=== PATIENT | female | born 1965 | race Caucasian/White ===

== ENCOUNTER → 2020-07-27 | Outpatient (CLI) | payer OTHER ==
[~2020-07-27] MED LIST: Aviane1 EACH; CLON.5 PO; Celexa40 MG PO
== END | disposition home or self-care (01) ==
LOC: PLD 11:43 → LAB SHORT 11:43
DX: D22.62 Melanocytic nevi of left upper limb, including shoulder (principal)
CPT/HCPCS: 88305

== ENCOUNTER 2021-08-11 09:02 | Day surgery (SDC) | payer OTHER ==
[~2021-08-11] VITALS: Ht 165.1 cm; Wt 57.7 kg
[~2021-08-11 09:02] MED LIST changes: +CULTURELLE KID1 EA10 PO; +Calcium Carbon500 MG PO; +FLUVOXAMINE MA150 MG PO
== END 2021-08-11 11:11 | disposition home or self-care (01) ==
LOC: ORSCSDS 09:02
DX: Z12.11 Encounter for screening for malignant neoplasm of colon (principal); Z80.0 Family history of malignant neoplasm of digestive organs; U07.1 COVID-19; K52.831 Collagenous colitis; Z79.899 Other long term (current) drug therapy
CPT/HCPCS: 88305; 88313; J2704; J7120

== ENCOUNTER → 2024-09-10 | Outpatient (CLI) | payer OTHER ==
[2024-09-13 13:36] LABS: HPV HIGH RISK BY TMA Not Detected; HPV SOURCE Vaginal
== END ==
LOC: LAB SHORT 12:03 → LAB 12:03
PROVIDERS: Family Medicine
DX: Z01.419 Encounter for gynecological examination (general) (routine) without abnormal findings (principal)
CPT/HCPCS: 87624; G0123